=== PATIENT | female | born 1955 | race African-American/Black ===

== ENCOUNTER 2020-02-07 08:50 | Emergency (ER) | payer MEDICARE, MEDICAID ==
[~2020-02-07] VITALS: Ht 154.9 cm; Wt 56.7 kg
[2020-02-07] MEDS ORDERED: ASPirin 81 mg TAB PO ONE (09:15)
[2020-02-07] MEDS ORDERED: NITROGLYCERIN 0.4 MG SL TAB SL ONE (09:15)
[2020-02-07 09:35] LABS: Basophils # (auto) 0 10 ^3/uL (0-0.2); Basophils % (auto) 0.7 % (0.0-2.0); Eosinophils # (auto) 0.1 10 ^3/uL (0-0.8); Eosinophils % (auto) 1.3 % (0.0-7.0); Hematocrit 43.5 % (36.0-46.0); Hemoglobin 14.3 g/dL (12.2-16.2); Lymphocytes # (auto) 1.8 10 ^3/uL (0.4-5.4); Lymphocytes % (auto) 26.3 % (10.0-50.0); Mean Corpuscular Hemoglobin 28.9 pg (28.0-32.0); Mean Corpuscular Hgb Conc. 32.8 g/dL (32.0-36.0); Mean Corpuscular Volume 88.2 fL (80.0-100.0); Monocytes # (auto) 0.4 10 ^3/uL (0-1.3); Monocytes % (auto) 6.2 % (0.0-12.0); Neutrophils # (auto) 4.4 10 ^3/uL (1.6-8.6); Neutrophils % (auto) 65.5 % (37.0-80.0); Platelet Count (auto) 292 10^3/uL (140-450); Red Blood Cells 4.94 10^6/uL (4.0-5.20); Red Cell Distribution Width 14.4 % (11.8-14.3); White Blood Cell 6.7 10^3/uL (4.4-10.8)
[2020-02-07 09:57] LABS: Anion Gap 6 (5-15); Blood Urea Nitrogen 15 mg/dL (7-18); Calcium 9.4 mg/dL (8.5-10.1); Carbon Dioxide 24 mmol/L (21-32); Chloride 109 mmol/L (98-107); Glucose 93 mg/dL (74-106); Sodium 139 mmol/L (136-145)
[2020-02-07 10:02] LABS: Alanine Aminotransferase 22 U/L (13-56); Alkaline Phosphatase 109 U/L (45-117); Aspartate Aminotransferase 15 U/L (15-37); BUN/Creatinine Ratio 20.5; Bilirubin, Total 0.3 mg/dL (0.2-1.0); GFR African American 103 mL/min; GFR Non-African American 85 mL/min; Total Protein 8.2 g/dL (6.4-8.2)
[2020-02-07 11:06] LABS: Urine Bacteria NONE SEEN /hpf (None Seen); Urine Blood TRACE /uL (Negative); Urine Mucus FEW (None Seen); Urine WBC 24 /hpf (0 - 5)
[2020-02-07 11:26] VITALS: BP 161/82
== END 2020-02-07 13:15 | disposition home or self-care (01) ==
LOC: ER 08:50
DX: R07.89 Other chest pain (principal); J40 Bronchitis, not specified as acute or chronic; N39.0 Urinary tract infection, site not specified; F17.210 Nicotine dependence, cigarettes, uncomplicated; I10 Essential (primary) hypertension
CPT/HCPCS: 36415; 71046; 80053; 81001; 84484; 85025; 93005

== ENCOUNTER 2024-10-14 16:29 | Inpatient (IN) | payer OTHER, MEDICAID ==
[~2024-10-14] VITALS: Ht 154.9 cm; Wt 64.3 kg
--- NOTE | 2024-10-14 16:48 | ED.PDOC ---
History of Present Illness HPI Comments 69F presents to the ER w/ prior Hx of HTN, VA and Asthma which all may be associated to the c/c of CP which started at 0900 this morning. Pt reports that she was bending down when the substernal CP w/ a stabbing sensation, also radiating down the left arm and was associated w/ SOB. Pt states that she had similar symptoms 2 weeks ago but went to [facility]. Pt's Pain type is a 9/10. PMHx of CVA. SHx of Tonsillectomy. Social Hx of Tobacco, and recently quite marijuana use but denies alcohol use. Family Hx of Heart Dorys. Chief Complaint: Chest Pain Time Seen by MD: 16:40 Reviewed Notes: Nurses Notes, Medications, Allergies Allergies: Coded Allergies: Aspirin (Verified Allergy, Unknown, 02/07/20) Information Source: Patient Mode of Arrival: Ambulatory Severity: Moderate Timing: Hours Duration: Since onset, Hours Prehospital treatment: None Past Medical History PAST MEDICAL HISTORY: Asthma, CVA, HTN, VA Surgical History: Tonsillectomy INSOLVENCY PRACTITIONER History: No Pertinent INSOLVENCY PRACTITIONER History Family History Family History: Reviewed,noncontributory to illness, Family hx of heart dorys Social History Smoker: Cigarettes Alcohol: Denies ETOH Use Drugs: Marijuana (Recently Quit) Lives In: Home Constitutional: denies: chills, diaphoresis, fatigue, fever, malaise, sweats, weakness, others EENTM: denies: blurred vision, double vision, ear bleeding, ear discharge, ear drainage, ear pain, ear ringing, eye pain, eye redness, hearing loss, mouth pain, mouth swelling, nasal discharge, nose bleeding, nose congestion, nose pain, photophobia, tearing, throat pain, throat swelling, voice changes, others Respiratory: reports: shortness of breath; denies: cough, hemoptysis, orthopnea, SOB at rest, SOB with excertion, stridor, wheezing, others Cardiovascular: reports: chest pain, left arm pain; denies: dizzy spells, diaphoresis, Dyspnea on exertion, edema, irregular heart beat, lightheadedness, palpitations, PND, syncope, others Gastrointestinal: denies: abdomen distended, abdominal pain, blood streaked bowels, constipated, diarrhea, dysphagia, difficulty swallowing, hematemesis, melena, nausea, poor appetite, poor fluid intake, rectal bleeding, rectal pain, vomiting, others Genitourinary: denies: abnormal vagina bleeding, burning, dyspareunia, dysuria, flank pain, frequency, hematuria, incontinence, pain, , vagina discharge, urgency, others Neurological: denies: dizziness, fainting, headache, left sided numbness, left sided weakness, numbness, paresthesia, pre-existing deficit, right sided numbness, right sided weakness, seizure, speech problems, tingling, tremors, weakness, others Musculoskeletal: denies: back pain, gout, joint pain, joint swelling, muscle pain, muscle stiffness, neck pain, others Integumetry: denies: bruises, change in color, change in hair/nails, dryness, laceration, lesions, lumps, rash, wounds, others Allergic/Immunocompromised: denies: Difficulty Healing, Frequent Infections, Hives, Itching, others Hematologic/Lymphatic: denies: anemia, blood clots, easy bleeding, easy bruising, swollen glands, others Endocrine: denies: excessive hunger, excessive sweating, excessive thirst, excessive urination, flushing, intolerance to cold, intolerance to heat, unexplained weight gain, unexplained weight loss, others Psychiatric: denies: anxiety, bipolar disorder, depression, hopeless, panic disorder, schizophrenia, sleepless, suicidal, others All Other Systems: Reviewed and Negative Physical Exam General Appearance: Moderate Distress HEENT: Normal ENT Inspection, Pharynx Normal, TMs Normal Neck: Full Range of Motion, Non-Tender, Normal, Normal Inspection Respiratory: Chest Non-Tender, Lungs Clear, No Accessory Muscle Use, No Respiratory Distress, Normal Breath Sounds Cardiovascular: No Edema, No JVD, No Murmur, No Gallop, Normal Peripheral Pulses, Regular Rate/Rhythm Breast Exam: Deferred Gastrointestinal: No Organomegaly, Non Tender, No Pulsatile Mass, Normal Bowel Sounds, Soft Genitalia: Deferred Pelvic: Deferred Rectal: Deferred Extremities: No calf tenderness, Normal capillary refill, Normal inspection, Normal range of motion, Non-tender, No pedal edema Musculoskeletal : Apperance: Normal Neurologic: Alert, medical reception II-XII nml as Tested, Motor Weakness, Normal Affect, Normal Mood, No Sensory Deficits Cerebellar Function: Normal Reflexes: Normal Skin: Dry, Normal Color, Warm Lymphatic: No Adenopathy Was a procedure done? Was a procedure done?: No EKG EKG : Pulse Rate (adult): 88 [place]: Normal Cardiac Rhythm: NSR Block: None Hypertrophy: None ST: Normal Differential Dx Considerations may include: ACS, VA, generalized weakness X-Ray, Labs, Meds, VS Vital Signs Date Time Temp Pulse Resp B/P (MAP) Pulse Ox O2 Delivery O2 Flow Rate FiO2 10/14/24 17:39 87 10/14/24 16:48 88 10/14/24 16:43 98.0 100 20 144/85 (104) 99 10/14/24 16:42 88 Lab Test 10/14/24 17:48 10/14/24 16:38 Range/Units Troponin I High Sensitivity 4 4 </=34 ng/L White Blood Count 11.8 H 4.4-10.8 10^3/uL Red Blood Count 4.73 4.0-5.20 10^6/uL Hemoglobin 14.0 12.2-16.2 g/dL Hematocrit 40.9 36.0-46.0 % Mean Corpuscular Volume 86.4 80.0-100.0 fL Mean Corpuscular Hemoglobin 29.6 28.0-32.0 pg Mean Corpuscular Hemoglobin Concent 34.3 32.0-36.0 g/dL Red Cell Distribution Width 15.1 H 11.8-14.3 % Platelet Count 294 140-450 10^3/uL Mean Platelet Volume 7.8 6.9-10.8 fL Neutrophils (%) (Auto) 74.4 37.0-80.0 % Lymphocytes (%) (Auto) 18.9 10.0-50.0 % Monocytes (%) (Auto) 5.5 0.0-12.0 % Eosinophils (%) (Auto) 0.8 0.0-7.0 % Basophils (%) (Auto) 0.4 0.0-2.0 % Neutrophils # (Auto) 8.8 H 1.6-8.6 10 ^3/uL Lymphocytes # (Auto) 2.2 0.4-5.4 10 ^3/uL Monocytes # (Auto) 0.6 0-1.3 10 ^3/uL Eosinophils # (Auto) 0.1 0-0.8 10 ^3/uL Basophils # (Auto) 0 0-0.2 10 ^3/uL Nucleated Red Blood Cells 0.0 % Sodium Level 141 136-145 mmol/L Potassium Level 4.0 3.5-5.1 mmol/L Chloride Level 103 98-107 mmol/L Carbon Dioxide Level 27 20-31 mmol/L Anion Gap 11 5-15 Blood Urea Nitrogen 14 9-23 mg/dL Creatinine 0.94 0.550-1.02 mg/dL Glomerular Filtration Rate Calc 65 >90 mL/min BUN/Creatinine Ratio 14.9 10.0-20.0 Serum Glucose 97 74-106 mg/dL Calcium Level 10.5 H 8.7-10.4 mg/dL IV Hep-Lock was established The patient was allergic to aspirin. The troponin level x2 is within normal limits The chemistry panel is within normal limits The CBC is within normal limits. At this time, the patient was being admitted to the hospitalist The chest x-ray shows: IMPRESSION: 1. Increased density in the lung bases bilaterally may represent breast tissue or pulmonary infiltrates. HS:Y The patient was being admitted at this time. Images Reviewed?: Images reviewed and evaluated by me Time of 1ST Reevaluation: 17:10 Reevaluation 1ST: Unchanged Patient Education/Counseling: Diagnosis, Treatment, Prognosis Family Education/Counseling: No Family Present Departure 1 Departure Time of Disposition: 19:10 Impression: Primary Impression: Acute coronary syndrome Disposition: 09 ADMITTED INPATIENT Admit to: [facility] Condition: Fair Critical Care Note Critical Care Time?: Yes (55 min-critical care time only) Stability Stability form required: Yes Unstable for transfer: Telemetry monitoring (Telemetry monitoring required), ED Physician Assesment (Clinical assesment) Heart Score Heart Score: Heart Score Response (Comments) Value History Moderate Suspicious 1 EKG Repolarization Disturb 1 Age >65 2 Risk Factors 1 or 2 risk factors 1 Troponin Normal limit 0 Total 5 I personally scribed for DANIEL RANDOLPH MD ([email or web address]) on 10/14/24 at 16:48. Electronically submitted by Yayo Chaudhary ([email or web address]). DANIEL RANDOLPH MD Oct 14, 2024 16:48
--- NOTE | 2024-10-14 17:14 | DVH ---
CHEST RADIOGRAPH Indication: cp Technique: Single frontal view of the chest was obtained Comparison: None FINDINGS: Lines and Tubes: None Lungs: Increased density in the lung bases bilaterally may represent breast tissue Pleura: No effusion. No pneumothorax. Cardiomediastinal contours: Unremarkable Bones: No acute osseous abnormality. IMPRESSION: 1. Increased density in the lung bases bilaterally may represent breast tissue or pulmonary infiltrat es. HS:Y
[2024-10-14 17:15] LABS: Basophils # (auto) 0 10 ^3/uL (0-0.2); Basophils % (auto) 0.4 % (0.0-2.0); Eosinophils # (auto) 0.1 10 ^3/uL (0-0.8); Eosinophils % (auto) 0.8 % (0.0-7.0); Hematocrit 40.9 % (36.0-46.0); Lymphocytes # (auto) 2.2 10 ^3/uL (0.4-5.4); Lymphocytes % (auto) 18.9 % (10.0-50.0); Mean Corpuscular Hemoglobin 29.6 pg (28.0-32.0); Mean Corpuscular Hgb Conc. 34.3 g/dL (32.0-36.0); Mean Corpuscular Volume 86.4 fL (80.0-100.0); Monocytes # (auto) 0.6 10 ^3/uL (0-1.3); Monocytes % (auto) 5.5 % (0.0-12.0); Neutrophils # (auto) 8.8 10 ^3/uL (1.6-8.6); Neutrophils % (auto) 74.4 % (37.0-80.0); Platelet Count (auto) 294 10^3/uL (140-450); Red Blood Cells 4.73 10^6/uL (4.0-5.20); Red Cell Distribution Width 15.1 % (11.8-14.3); White Blood Cell 11.8 10^3/uL (4.4-10.8)
[2024-10-14 17:23] LABS: Chloride 103 mmol/L (98-107); Sodium 141 mmol/L (136-145)
[2024-10-14 17:25] LABS: Anion Gap 11 (5-15); Carbon Dioxide 27 mmol/L (20-31)
[2024-10-14 17:30] LABS: BUN/Creatinine Ratio 14.9 (10.0-20.0); Blood Urea Nitrogen 14 mg/dL (9-23); Glucose 97 mg/dL (74-106)
[2024-10-14 18:10] LABS: Calcium 10.5 mg/dL (8.7-10.4)
--- NOTE | 2024-10-14 19:59 | ECG ---
[facility] Test Date: 2024-10-14 Test Time: 17:39:32 Pat Name: JASON GRANT Department: ED Room: [facility] Gender: F Vp Publisher Development: KIMANI : 1955 Requested By: DANIEL RANDOLPH Order Number: [id number] Reading MD: Alex Garcias Measurements Intervals [place] Rate: 87 P: 84 AR: 134 QRS: 77 QRSD: 83 T: 3 QT: 369 QTc: 444 Interpretive Statements Sinus rhythm Baseline wander in lead(s) V4,V5 Electronically Signed On 10-16-2024 18:44:36 PST by Alex Garcias Please click the below link to view image of tracing.
[2024-10-14] MEDS ORDERED: ONDANSETRON HCL 4 MG/2 ML VIAL IV PRN (20:30)
[2024-10-14] MEDS ORDERED: DOCUSATE SOD 100 MG CAP PO PRN (20:30)
[2024-10-14] MEDS ORDERED: hydrALAZINE HCL 20 MG/ML VL IV PRN (20:30)
[2024-10-14] MEDS ORDERED: ACETAMINOPHEN 325 MG TAB PO PRN (20:30)
[2024-10-14 20:44] VITALS: BP 144/88; PULSE 87; RESP 20; O2SAT 92
[2024-10-14] MEDS: AZITHROMYCIN 500MG/ 250ML 250 ML IV ONE (22:08)
--- NOTE | 2024-10-14 22:12 | DVHHP2 ---
History of Present Illness Reason for Visit: Acute coronary syndrome History of Present Illness The patient is a 69-year-old female with past medical history of CVA, [place], hypertension, and asthma presented to [facility] ED with complaint chest pain. Patient reports symptoms progressively get worse with substernal c hest pain, stopping sensation radiates to the left arm, associated shortness of breaths, getting worse that prompted this visit. Patient was seen evaluated in the ED, laboratory data shows WBC 11.8, platelets 294, sodium 141, potassium 4.0, BUN 14, creatinine 0.94, GFR 65, glucose 97, calcium 10.5, troponin 4 blood pressure 144/85, heart rate 88, temperature 98.0 F, O2 saturation 9% on oxygen. Chest x-ray revealing increased density in the lung bases bilaterally may represent breast tissue or pulmonary infiltrates. Patient was started on IV antibiotic regimen azithromycin, please see medication orders section in the computer. On my assessment, patient denied chest pain at this moment, headache, no dizziness, no diaphoresis, currently on oxygen, no nausea, no vomiting, no fever, no chills. Patient was admitted for further evaluation and medical management. Past Medical History Asthma, CVA, HTN, [place] Past Surgical History Tonsillectomy Family History Reviewed, noncontributory to the management of this case. Past Social History The patient lives at home, denies alcohol, smokes cigarettes, uses marijuana. Review of Systems Constitutional: Yes: Weakness; No: Fever, Chills, Sweats, Malaise, Other Eyes: No: Pain, Vision change, Conjunctivae inflammation, Eyelid inflammation, Other, Redness ENT: No: Ear pain, Ear discharge, Nose pain, Nose discharge, Nose congestion, Mouth pain, Mouth swelling, Throat pain, Throat swelling, Other Respiratory: No: Cough, Dry, Shortness of breath, SOB with excertion, Wheezing, Hemoptysis, Pleuritic Pain, Sputum, Wheezing, Other Cardiovascular: Chest Pain, Other (Left arm pain); No: Palpitations, Orthopnea, Paroxysmal Noc. Dyspnea, Edema, Lt Headedness Gastrointestinal: No: Nausea, Vomiting, Abdominal Pain, Diarrhea, Constipation, Melena, Hematochezia, Other Genitourinary: No Dysuria, No Frequency, No Incontinence, No Hematuria, No Retention, No Other Musculoskeletal: arm pain; No: other, neck pain, shoulder pain, back pain, hand pain, leg pain, foot pain Skin: No: Rash, Lesions, Jaundice, Bruising, Other Neurological: No: Weakness, Numbness, Incoordination, Change in speech, Confusion, Seizures, Other Allergies: Coded Allergies: Aspirin (Verified Allergy, Unknown, 02/07/20) Medications Current Medications Medications Dose Ordered Sig/Angely Route Start Time Stop Time Status Last Admin Dose Admin Aspirin 81 mg DAILY PO 10/15/24 10:00 Future Hold Atorvastatin Calcium 10 mg HS PO 10/14/24 22:00 Hydralazine HCl 10 mg Q6HP PRN IV 10/14/24 20:30 Metoprolol Tartrate 25 mg BID PO 10/14/24 22:00 Albuterol 2.5 mg Q4HPRN PRN NEB 10/14/24 20:30 Azithromycin 250 ml @ 125 mls/hr DAILY IV 10/15/24 10:00 Acetaminophen/ Hydrocodone Bitart 1 tab Q4HP PRN PO 10/14/24 20:30 Ondansetron HCl 4 mg Q4HP PRN IV 10/14/24 20:30 Docusate Sodium 100 mg BIDPRN PRN PO 10/14/24 20:30 Acetaminophen 650 mg Q6HP PRN PO 10/14/24 20:30 Nitroglycerin 0.4 mg Q5MINP PRN SL 10/14/24 22:15 Morphine Sulfate 2 mg Q30M PRN IV 10/14/24 22:15 Exam Vital Signs Vital Signs Date Time Temp Pulse Resp B/P (MAP) Pulse Ox O2 Delivery O2 Flow Rate FiO2 10/14/24 21:57 74 20 100 Room Air 10/14/24 21:57 97.8 152/87 (108) 97.8 10/14/24 20:44 0.0 21 General Appearance: Alert, Oriented X3, Cooperative, No acute distress HEENT: Atraumatic, PERRLA, EOMI, Mucous membr. moist/pink Respiratory: Normal air movement, Other (Diminished breath sounds) Cardiovascular: Regular rate, Normal S1, Normal S2, No murmurs Abdominal: Normal bowel sounds, Soft, No tenderness, No hepatospenomegaly, No masses Extremities: No clubbing, No cyanosis, No edema, Normal pulses, No tenderness/swelling Skin: No rashes, No breakdown, No significant lesion Neuro: Normal speech, Normal tone, Sensation intact, Cranial nerves 3-12 NL, Re flexes 2+, Other (Generalized weakness) Psych/Mental Status: Mental status NL, Mood NL Labs/Xrays Labs Test 10/14/24 17:48 10/14/24 16:38 Range/Units Troponin I High Sensitivity 4 </=34 ng/L White Blood Count 11.8 H 4.4-10.8 10^3/uL Red Blood Count 4.73 4.0-5.20 10^6/uL Hemoglobin 14.0 12.2-16.2 g/dL Hematocrit 40.9 36.0-46.0 % Mean Corpuscular Volume 86.4 80.0-100.0 fL Mean Corpuscular Hemoglobin 29.6 28.0-32.0 pg Mean Corpuscular Hemoglobin Concent 34.3 32.0-36.0 g/dL Red Cell Distribution Width 15.1 H 11.8-14.3 % Platelet Count 294 140-450 10^3/uL Mean Platelet Volume 7.8 6.9-10.8 fL Neutrophils (%) (Auto) 74.4 37.0-80.0 % Lymphocytes (%) (Auto) 18.9 10.0-50.0 % Monocytes (%) (Auto) 5.5 0.0-12.0 % Eosinophils (%) (Auto) 0.8 0.0-7.0 % Basophils (%) (Auto) 0.4 0.0-2.0 % Neutrophils # (Auto) 8.8 H 1.6-8.6 10 ^3/uL Lymphocytes # (Auto) 2.2 0.4-5.4 10 ^3/uL Monocytes # (Auto) 0.6 0-1.3 10 ^3/uL Eosinophils # (Auto) 0.1 0-0.8 10 ^3/uL Basophils # (Auto) 0 0-0.2 10 ^3/uL Nucleated Red Blood Cells 0.0 % Sodium Level 141 136-145 mmol/L Potassium Level 4.0 3.5-5.1 mmol/L Chloride Level 103 98-107 mmol/L Carbon Dioxide Level 27 20-31 mmol/L Anion Gap 11 5-15 Blood Urea Nitrogen 14 9-23 mg/dL Creatinine 0.94 0.550-1.02 mg/dL Glomerular Filtration Rate Calc 65 >90 mL/min BUN/Creatinine Ratio 14.9 10.0-20.0 Serum Glucose 97 74-106 mg/dL Calcium Level 10.5 H 8.7-10.4 mg/dL PATIENT: JASON GRANT ACCT: [id number] UNIT: [id number] : 1955 LOC: ER ROOM / BED: / AGE / SEX: 69 / F ADM STATUS: REG ER SERVICE ORDERING PHYSICIAN: DANIEL RANDOLPH MD PROCEDURE(s): CXRP - CHEST PORTABLE REASON: cp ORDER NUMBER(s): [id number], ACCESSION NUMBER(s): [id number] CHEST RADIOGRAPH Indication: cp Technique: Single frontal view of the chest was obtained Comparison: None FINDINGS: Lines and Tubes: None Lungs: Increased density in the lung bases bilaterally may represent breast tissue Pleura: No effusion. No pneumothorax. Cardiomediastinal contours: Unremarkable Bones: No acute osseous abnormality. IMPRESSION: 1. Increased density in the lung bases bilaterally may represent breast tissue or pulmonary infiltrates. Assessment/Plan Assessment/Plan Acute coronary syndrome Generalized weakness Leukocytosis, unspecified Pneumonia, unspecified organism Plan 1. Admit to telemetry unit 2. Breathing treatment 3. Pain control management 4. IV antibiotic management 5. Management of fluids and electrolytes 6. Consultation for hospitalist 7. Diagnostic test chest x-ray 8. DVT prophylaxis-on aspirin 9. Repeat labs CBC, CMP in a.m. 10. Home medication reviewed and reconciled 11. Continue with current medical management 12. Treatment plan discussed with patient and RN. Patient verbalized understanding. Plan discussed with: Patient, Other (RN) My Orders Orders - FRANCESCO CATES DNP Procedure Category Date Status Time Aspirin Tablet PHA 10/15/24 In Process 10:00 Atorvastatin (Lipitor) PHA 10/14/24 In Process 22:00 Hydralazine Injection PHA 10/14/24 In Process (Apresoline Inject 20:30 Metoprolol Tartrate PHA 10/14/24 In Process Tablet (Lopressor Ta 22:00 Albuterol Medneb PHA 10/14/24 In Process (Ventolin Medneb) 20:30 Azithromycin 500mg/ PHA 10/15/24 In Process 250ml (Zithromax 50 10:00 Azithromycin 500mg/ PHA 10/14/24 In Process 250ml (Zithromax 50 20:30 Allergies JEAN 10/14/24 In Process 20:30 Code Status CODE 10/14/24 Transmitted 20:30 Oxygen Per Hour RT 10/14/24 Transmitted 20:30 Hydrocodone-Acet PHA 10/14/24 In Process 5/325mg Tab ([place] 20:30 Ondansetron Hcl PHA 10/14/24 In Process (Zofran) 20:30 Docusate Sodium PHA 10/14/24 In Process Capsule (Colace 20:30 Complete Blood Count LAB 10/15/24 Verified 04:00 Comprehensive LAB 10/15/24 Verified Metabolic Panel 04:00 Cardiac DIET 10/15/24 Transmitted Diet-2gna,Lofat,Lochol Breakfast Condition: Serious JEAN 10/14/24 In Process 20:30 Acetaminophen Tablet PHA 10/14/24 In Process (Tylenol Tablet) 20:30 Bedrest With Bathroom JEAN 10/14/24 In Process Privileg 20:30 Sequential JEAN 10/14/24 In Process Compression Device Admit ADMIT 10/14/24 Transmitted 22:03 Nitroglycerin PHA 10/14/24 In Process Sublingual (Ntrostat 22:15 Morphine Sulfate PHA 10/14/24 In Process Injection 22:15 Notify Of Changes JEAN 10/14/24 In Process From Base 22:03 Safety And Security Officer For [facility] 10/14/24 In Process 24 Hours 22:03 Emergency Dysrhythmia JEAN 10/14/24 In Process Protocol 22:03 Rhythm Strips Once JEAN 10/14/24 In Process Every Shift 22:03 Oxygen By Nasal RT 10/14/24 Transmitted Cannula 22:03 Problem List: (1) Acute coronary syndrome (2) Leukocytosis, unspecified (3) Generalized weakness (4) Pneumonia, unspecified organism Date of Service: Oct 14, 2024 Billing Provider: FRANCESCO CATES DNP Common Visit Codes: [id number] INP/OBS CARE (HIGH) FRANCESCO CATES DNP Oct 14, 2024 22:12
[2024-10-14] MEDS: ATORVASTATIN 20 MG TAB PO SCH (22:14)
[2024-10-14] MEDS: METOPROLOL TARTRATE 25 MG TAB PO SCH (22:14)
[2024-10-14] MEDS: HYDROcodone-ACET 5/325MG TAB PO PRN (22:14)
[2024-10-14] MEDS ORDERED: MORPHINE SULFATE INJ 2 MG/ml SYRG IV PRN (22:15)
[2024-10-14] MEDS ORDERED: NITROGLYCERIN 0.4 MG SL TAB SL PRN (22:15)
[2024-10-15] VITALS (13 sets, daily range): BP systolic 119–154; BP diastolic 69–87; PULSE 58–77; RESP 16–20; TEMP 97.6–98.1; O2SAT 98–100
[2024-10-15 07:15] LABS: Basophils # (auto) 0 10 ^3/uL (0-0.2); Basophils % (auto) 0.4 % (0.0-2.0); Eosinophils # (auto) 0.1 10 ^3/uL (0-0.8); Eosinophils % (auto) 1.2 % (0.0-7.0); Hematocrit 42.5 % (36.0-46.0); Lymphocytes # (auto) 1.8 10 ^3/uL (0.4-5.4); Lymphocytes % (auto) 21.7 % (10.0-50.0); Mean Corpuscular Hemoglobin 28.9 pg (28.0-32.0); Mean Corpuscular Hgb Conc. 32.9 g/dL (32.0-36.0); Monocytes # (auto) 0.7 10 ^3/uL (0-1.3); Monocytes % (auto) 8.9 % (0.0-12.0); Neutrophils # (auto) 5.6 10 ^3/uL (1.6-8.6); Neutrophils % (auto) 67.8 % (37.0-80.0); Nucleated Red Blood Cells % 0.1 %; Platelet Count (auto) 265 10^3/uL (140-450); Red Blood Cells 4.83 10^6/uL (4.0-5.20); Red Cell Distribution Width 15.2 % (11.8-14.3); White Blood Cell 8.3 10^3/uL (4.4-10.8)
[2024-10-15 07:42] LABS: Alanine Aminotransferase 10 U/L (7-40); Albumin 4.8 g/dL (3.2-4.8); Alkaline Phosphatase 83 U/L (46-116); Anion Gap 9 (5-15); Aspartate Aminotransferase 14 U/L (13-40); BUN/Creatinine Ratio 13.9 (10.0-20.0); Bilirubin, Total 0.6 mg/dL (0.2-1.0); Blood Urea Nitrogen 11 mg/dL (9-23); Calcium 10.3 mg/dL (8.7-10.4); Carbon Dioxide 23 mmol/L (20-31); Chloride 105 mmol/L (98-107); Potassium 4.1 mmol/L (3.5-5.1); Sodium 137 mmol/L (136-145); Total Protein 7.9 g/dL (5.7-8.2)
[2024-10-15 07:44] LABS: Glucose 108 mg/dL (74-106)
[2024-10-15] MEDS ORDERED: ASPirin 81 mg TAB PO SCH (10:00)
[2024-10-15] MEDS: AZITHROMYCIN 500MG/ 250ML 250 ML IV SCH (10:13)
--- NOTE | 2024-10-15 12:06 | DVHPN2 ---
Subjective 69-year-old female with a history of asthma, hypertension, CVA x2, [place] in the past comes with chief complaint of chest pain for 1 week associated with some cough The pain is in the center of the chest associated with movement and deep breathing The cough is productive of some dark yellow sputum Changes from previous H/P or p: Changes Eyes: No Pain, No Vision change, No Conjunctivae inflammation, No Eyelid inflammation, No Other, No Redness ENT: No Ear pain, No Ear discharge, No Nose pain, No Nose discharge, No Nose congestion, No Mouth pain, No Mouth swelling, No Throat pain, No Throat swelling, No Other Cardiovascular: Chest Pain; No Palpitations, No Orthopnea, No Paroxysmal Noc. Dyspnea, No Edema, No Lt Headedness; Other (Left arm pain) Respiratory: No Cough, No Dry, No Shortness of breath, No SOB with excertion, No Wheezing, No Hemoptysis, No Pleuritic Pain, No Sputum, No Other Gastrointestinal: No Nausea, No Vomiting, No Abdominal Pain, No Diarrhea, No Constipation, No Melena, No Hematochezia, No Other Genitourinary: No Dysuria, No Frequency, No Incontinence, No Hematuria, No Retention, No Other Musculoskeletal: No other, No neck pain, No shoulder pain; arm pain; No back pain, No hand pain, No leg pain, No foot pain Skin: No Rash, No Lesions, No Jaundice, No Bruising, No Other Objective Vitals Vital Signs Date Time Temp Pulse Resp B/P (MAP) Pulse Ox O2 Delivery O2 Flow Rate FiO2 10/15/24 10:16 68 135/80 10/15/24 09:16 98.1 17 99 98.1 10/15/24 00:31 Room Air* 0 21 Intake/Output Intake and Output 10/15/24 07:00 Intake Total 240 ml Output Total 200 ml Balance 40 ml Intake Oral 240 ml Output Urine Total 200 ml General Appearance: Alert, Oriented X3, Cooperative, No acute distress Lungs: Clear to auscultation Cardiovascular: Regular rate Abdomen: Normal bowel sounds, Soft, No tenderness Extremities: No edema Medications Current Medications Medications Dose Ordered Sig/Agnely Route Start Time Stop Time Status Last Admin Dose Admin Aspirin 81 mg DAILY PO 10/15/24 10:00 Hold Atorvastatin Calcium 10 mg HS PO 10/14/24 22:00 10/14/24 22:14 10 MG Hydralazine HCl 10 mg Q6HP PRN IV 10/14/24 20:30 Metoprolol Tartrate 25 mg BID PO 10/14/24 22:00 10/15/24 10:16 25 MG Albuterol 2.5 mg Q4HPRN PRN NEB 10/14/24 20:30 Azithromycin 250 ml @ 125 mls/hr DAILY IV 10/15/24 10:00 10/15/24 10:13 125 MLS/HR Acetaminophen/ Hydrocodone Bitart 1 tab Q4HP PRN PO 10/14/24 20:30 10/15/24 11:07 1 TAB Ondansetron HCl 4 mg Q4HP PRN IV 10/14/24 20:30 Docusate Sodium 100 mg BIDPRN PRN PO 10/14/24 20:30 Acetaminophen 650 mg Q6HP PRN PO 10/14/24 20:30 Nitroglycerin 0.4 mg Q5MINP PRN SL 10/14/24 22:15 Morphine Sulfate 2 mg Q30M PRN IV 10/14/24 22:15 Laboratory Results Laboratory Tests 10/15/24 06:22 Chemistry Test 10/14/24 16:38 10/15/24 06:22 Calcium Level 10.5 mg/dL (8.7-10.4) H 10.3 mg/dL (8.7-10.4) Albumin 4.8 g/dL (3.2-4.8) Total Protein 7.9 g/dL (5.7-8.2) LFT Test 10/15/24 06:22 Alanine Aminotransferase (ALT) 10 U/L (7-40) Alkaline Phosphatase 83 U/L (46-116) Aspartate Amino Transferase (AST) 14 U/L (13-40) Total Bilirubin 0.6 mg/dL (0.2-1.0) Assessment/Plan Assessment/Plan Acute chest pain, musculoskeletal Bilateral pneumonia Asthma COPD exacerbation Hypertension History of CVA History of asthma History of [place] Hypothyroidism Plan IV antibiotics Rocephin and Zithromax Discontinue aspirin, patient is allergic Troponins are negative Resume home medications Start prednisone 40 mg daily Med neb treatments as needed Tylenol p.r.n. for the pain Get sputum culture and sensitivity Check for COVID and influenza a and B Monitor closely Full code Resume levothyroxine Get the home medications Plan discussed with: Patient Date of Service: Oct 15, 2024 Billing Provider: BROOKLYNN TAYLOR MD Common Visit Codes: NOT BILLABLE BROOKLYNN TAYLOR MD Oct 15, 2024 12:06
[2024-10-15] MEDS: ALBUTEROL SULF 2.5 MG/0.5ML(0.5%) NEB SOLN NEB PRN (14:23)
[2024-10-15] MEDS: predniSONE 20 MG TAB PO ONE (15:45)
[2024-10-15] MEDS: cefTRIAXone 1GM/50ML D5W 50 ML IV ONE (15:46)
[2024-10-15] MEDS: LEVOTHYROXINE SODIUM 25 MCG TAB PO ONE (15:46)
[2024-10-16] VITALS (10 sets, daily range): BP systolic 139–157; BP diastolic 65–89; PULSE 60–74; RESP 18–19; TEMP 97.6–98.5; O2SAT 96–100
[2024-10-16] MEDS: LEVOTHYROXINE SODIUM 25 MCG TAB PO SCH (05:58)
[2024-10-16] MEDS: cefTRIAXone 1GM/50ML D5W 50 ML IV SCH (10:51)
[2024-10-16] MEDS: predniSONE 20 MG TAB PO SCH (10:52)
--- NOTE | 2024-10-16 12:41 | DVHPN2 ---
Subjective Still having cough productive of some sputum She is still having chest pain also associated with a cough Changes from previous H/P or p: Changes Eyes: No Pain, No Vision change, No Conjunctivae inflammation, No Eyelid inflammation, No Other, No Redness ENT: No Ear pain, No Ear discharge, No Nose pain, No Nose discharge, No Nose congestion, No Mouth pain, No Mouth swelling, No Throat pain, No Throat swelling, No Other Cardiovascular: Chest Pain; No Palpitations, No Orthopnea, No Paroxysmal Noc. Dyspnea, No Edema, No Lt Headedness; Other (Left arm pain) Respiratory: No Cough, No Dry, No Shortness of breath, No SOB with excertion, No Wheezing, No Hemoptysis, No Pleuritic Pain, No Sputum, No Other Gastrointestinal: No Nausea, No Vomiting, No Abdominal Pain, No Diarrhea, No Constipation, No Melena, No Hematochezia, No Other Genitourinary: No Dysuria, No Frequency, No Incontinence, No Hematuria, No Retention, No Other Musculoskeletal: No other, No neck pain, No shoulder pain; arm pain; No back pain, No hand pain, No leg pain, No foot pain Skin: No Rash, No Lesions, No Jaundice, No Bruising, No Other Objective Vitals Vital Signs Date Time Temp Pulse Resp B/P (MAP) Pulse Ox O2 Delivery O2 Flow Rate FiO2 10/16/24 10:54 68 150/81 10/16/24 09:16 98.1 18 100 98.1 10/16/24 08:00 Room Air* 0 21 Intake/Output Intake and Output 10/16/24 07:00 Intake Total 1400 ml Output Total 900 ml Balance 500 ml Intake Oral 1400 ml Output Urine Total 900 ml General Appearance: Alert, Oriented X3, Cooperative, No acute distress Lungs: Clear to auscultation Cardiovascular: Regular rate Abdomen: Normal bowel sounds, Soft, No tenderness Extremities: No edema Medications Current Medications Medications Dose Ordered Sig/Angely Route Start Time Stop Time Status Last Admin Dose Admin Atorvastatin Calcium 10 mg HS PO 10/14/24 22:00 10/15/24 22:44 10 MG Hydralazine HCl 10 mg Q6HP PRN IV 10/14/24 20:30 Metoprolol Tartrate 25 mg BID PO 10/14/24 22:00 10/16/24 10:54 25 MG Albuterol 2.5 mg Q4HPRN PRN NEB 10/14/24 20:30 10/15/24 14:23 2.5 MG Azithromycin 250 ml @ 125 mls/hr DAILY IV 10/15/24 10:00 10/16/24 10:00 125 MLS/HR Acetaminophen/ Hydrocodone Bitart 1 tab Q4HP PRN PO 10/14/24 20:30 10/16/24 10:53 1 TAB Ondansetron HCl 4 mg Q4HP PRN IV 10/14/24 20:30 Docusate Sodium 100 mg BIDPRN PRN PO 10/14/24 20:30 Acetaminophen 650 mg Q6HP PRN PO 10/14/24 20:30 Nitroglycerin 0.4 mg Q5MINP PRN SL 10/14/24 22:15 Morphine Sulfate 2 mg Q30M PRN IV 10/14/24 22:15 Ceftriaxone Sodium 50 ml @ 100 mls/hr DAILY@09 IV 10/16/24 09:00 10/16/24 10:51 100 MLS/HR Prednisone 40 mg DAILY PO 10/16/24 10:00 10/16/24 10:52 40 MG Levothyroxine Sodium 75 mcg QAM@0600 PO 10/16/24 06:00 10/16/24 05:58 75 MCG Laboratory Results Laboratory Tests 10/15/24 06:22 Assessment/Plan Assessment/Plan Acute chest pain, musculoskeletal Bilateral pneumonia Asthma COPD exacerbation Hypertension History of CVA History of asthma History of SD Hypothyroidism Plan IV antibiotics Rocephin and Zithromax Discontinue aspirin, patient is allergic Troponins are negative Resume home medications Start prednisone 40 mg daily Med neb treatments as needed Tylenol p.r.n. 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
[2024-10-16 18:30] LABS: COVID19 ANTIGEN SOFIA FIA NEGATIVE (NEGATIVE); Rapid Influenza A Negative (Negative); Rapid Influenza B Negative (Negative)
[2024-10-16] MEDS: guaiFENesin-DM 100/10mg/5ml SYR PO PRN (22:02)
[2024-10-17] VITALS (13 sets, daily range): BP systolic 110–185; BP diastolic 59–106; PULSE 61–77; RESP 16–20; TEMP 97.6–98.4; O2SAT 94–100
[2024-10-17] MEDS: ALBUTEROL SULF 2.5 MG/0.5ML(0.5%) NEB SOLN NEB PRN (08:50)
[2024-10-17 10:40] LABS: Hepatitis B Surface Antigen Negative (Negative); Hepatitis C Antibody Negative (Negative)
--- NOTE | 2024-10-17 10:44 | ECG ---
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
--- NOTE | 2024-10-17 11:39 | DVHPN2 ---
Subjective Still having cough productive of dark brown sputum Changes from previous H/P or p: Changes Eyes: No Pain, No Vision change, No Conjunctivae inflammation, No Eyelid inflammation, No Other, No Redness ENT: No Ear pain, No Ear discharge, No Nose pain, No Nose discharge, No Nose congestion, No Mouth pain, No Mouth swelling, No Throat pain, No Throat swelling, No Other Cardiovascular: Chest Pain; No Palpitations, No Orthopnea, No Paroxysmal Noc. Dyspnea, No Edema, No Lt Headedness; Other (Left arm pain) Respiratory: No Cough, No Dry, No Shortness of breath, No SOB with excertion, No Wheezing, No Hemoptysis, No Pleuritic Pain, No Sputum, No Other Gastrointestinal: No Nausea, No Vomiting, No Abdominal Pain, No Diarrhea, No Constipation, No Melena, No Hematochezia, No Other Genitourinary: No Dysuria, No Frequency, No Incontinence, No Hematuria, No Retention, No Other Musculoskeletal: No other, No neck pain, No shoulder pain; arm pain; No back pain, No hand pain, No leg pain, No foot pain Skin: No Rash, No Lesions, No Jaundice, No Bruising, No Other Objective Vitals Vital Signs Date Time Temp Pulse Resp B/P (MAP) Pulse Ox O2 Delivery O2 Flow Rate FiO2 10/17/24 09:58 77 144/106 10/17/24 09:30 94 Room Air* 0 21 10/17/24 09:00 98.2 18 98.2 Intake/Output Intake and Output 10/17/24 07:00 Intake Total 2100 ml Output Total 1350 ml Balance 750 ml Intake Oral 1800 ml IV Total 300 ml Output Urine Total 1350 ml # Voids 2 General Appearance: Alert, Oriented X3, Cooperative, No acute distress Lungs: Clear to auscultation Cardiovascular: Regular rate Abdomen: Normal bowel sounds, Soft, No tenderness Extremities: No edema Medications Current Medications Medications Dose Ordered Sig/Angely Route Start Time Stop Time Status Last Admin Dose Admin Atorvastatin Calcium 10 mg HS PO 10/14/24 22:00 10/16/24 22:01 10 MG Hydralazine HCl 10 mg Q6HP PRN IV 10/14/24 20:30 Metoprolol Tartrate 25 mg BID PO 10/14/24 22:00 10/17/24 09:58 25 MG Azithromycin 250 ml @ 125 mls/hr DAILY IV 10/15/24 10:00 10/17/24 09:58 125 MLS/HR Acetaminophen/ Hydrocodone Bitart 1 tab Q4HP PRN PO 10/14/24 20:30 10/17/24 08:50 1 TAB Ondansetron HCl 4 mg Q4HP PRN IV 10/14/24 20:30 Docusate Sodium 100 mg BIDPRN PRN PO 10/14/24 20:30 Acetaminophen 650 mg Q6HP PRN PO 10/14/24 20:30 Nitroglycerin 0.4 mg Q5MINP PRN SL 10/14/24 22:15 Morphine Sulfate 2 mg Q30M PRN IV 10/14/24 22:15 Ceftriaxone Sodium 50 ml @ 100 mls/hr DAILY@09 IV 10/16/24 09:00 10/17/24 08:50 100 MLS/HR Prednisone 40 mg DAILY PO 10/16/24 10:00 10/17/24 09:58 40 MG Levothyroxine Sodium 75 mcg QAM@0600 PO 10/16/24 06:00 10/17/24 05:21 75 MCG Guaifenesin/ Dextromethorphan 10 ml Q6HP PRN PO 10/16/24 21:15 10/17/24 04:51 10 ML Albuterol 2.5 mg Q4HPRN PRN NEB 10/17/24 06:00 10/17/24 08:50 2.5 MG Laboratory Results Laboratory Tests 10/15/24 06:22 Assessment/Plan Assessment/Plan Acute chest pain, musculoskeletal Bilateral pneumonia Asthma COPD exacerbation Hypertension History of CVA History of asthma History of NM Hypothyroidism Plan IV antibiotics Rocephin and Zithromax Discontinue aspirin, patient is allergic Troponins are negative Resume home medications Start prednisone 40 mg daily Med neb treatments as needed Tylenol p.r.n. 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 Hypothyroidism: TSH is 22.44, the patient was not taking her thyroid medication at home, restarted her dose here 10/17/2024: Continue the current management with IV antibiotics and oxygen med neb treatments COVID and influenza was negative Check the sputum culture and sensitivity Continue the other medications Monitor the patient in the hospital for 1 more day Cardiology consult Echocardiogram Plan discussed with: Patient My Orders Orders - BROOKLYNN TAYLOR MD Procedure Category Date Status Time * Process Development Chemist CONS 10/16/24 Transmitted Consult Date of Service: Oct 17, 2024 Billing Provider: BROOKLYNN TAYLOR MD Common Visit Codes: NOT BILLABLE BROOKLYNN TAYLOR MD Oct 17, 2024 11:39
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
--- NOTE | 2024-10-17 15:01 | DVHSR ---
APPROVED REPORT EXAM: Two-dimensional and M-mode echocardiogram with Doppler and color Doppler. Blood Pressure: 144/106 mmHg INDICATION Chest Pain RISK FACTORS Height: 5'1", Weight: 136 DIMENSIONS LVDd4.0 (3.8-5.7cm)LA (2D)3.9 (1.9-4.0cm)Aortic Root2.5 (2.0-3.7cm) LVDs2.2 (2.5-4.0cm)LA (MM) (1.9-4.0cm)Aortic Cusp Exc1.8 (1.5-2.0cm) EF (%) 78.0 (55-70%)Rt. Atrium3.5 (1.9-4.0cm)Asc. Aorta2.6 cm IVSd1.1 (0.7-1.1cm)RV (D)2.8 (1.8-2.4cm) PWd0.7 (0.7-1.1cm) Mitral Valve MitralMitral Stenosis E wave0.87m/sMV Mean GR.mmHg A wave0.99m/sMV Peak GR.mmHg E/A ratio0.92D MVAcm2 DECEL [id number] 1/2 Timems Aortic Valve Aortic ValveAortic Stenosis V10.93m/Anneliese Mean GR.3mmHg V21.27m/Anneliese Peak GR.6mmHg LVOT Diameter1.9 (1.8-2.4cm)Doppler AVA2.08cm2 Pulmonic Valve V20.73m/s Conclusion lvef 55% by visual estimate moderate left atrium enlarged normal rv function normal right atrium
[2024-10-17 19:34] LABS: Magnesium 1.8 mg/dL (1.6-2.6)
[2024-10-18] VITALS (8 sets, daily range): BP systolic 126–158; BP diastolic 58–75; PULSE 50–85; RESP 16–20; TEMP 98.1–98.8; O2SAT 96–100
[2024-10-18] MEDS: REGADENOSON 0.4 MG/5 ML SYRG IV ONE ×2 (08:39→08:41)
--- NOTE | 2024-10-18 11:55 | DVHSR ---
APPROVED REPORT Exam: Nuclear Stress Test BMI: 0 Stress Test Details HR Max Heart Rate (APMHR): 149.633960 bpm Target HR (85% APMHR): 126.243419 bpm BP ECG Stress ECG Conclusion normal perfusin scan lvef 47% mild dysfunciton, correlate to echo no ischemia NM EXAM: Myocardial Perfusion REST/STRESS Imaging Protocol: Rest Tc-99m/Stress Tc-99m 1 day Resting Data Rest SPECT myocardial perfusion imaging was performed in supine position 60 minutes following the int ravenous injection of 15.5 mCi of Tc-99m Sestamibi. Time of rest injection: 1530 Date: 10/17/2024 Time of rest imagin Date: 10/17/2024 Administration Route: IV Administration Site: Right AC Pharmacologic Stress Pharmacologic stress test was performed by injecting Regadenoson 0.4 mg IV push followed by the intra venous injection of 37 mCi of Tc-99m Sestamibi. Time of stress injection: 838 Date: 10/18/2024 Time of stress imagin Date: 10/18/2024 Administration Route: IV Administration Site: Right AC Gated Stress SPECT was performed 60 minutes after stress injection. The images were gated to evaluate regional wall motion and calculate left ventricular ejection fracti on. Stress only was performed in the Supine position. Nuclear Conclusion Nuclear Findings: negative for ischemia normal perfusin scan lvef 47% mild dysfunciton, correlate to echo no ischemia
--- NOTE | 2024-10-18 12:19 | DVHPN2 ---
Progress Note Date Seen: Oct 18, 2024 Medical Necessity Reason Pt with a Central, PICC or Fol: No Objective vital signs Vital Sign Date Time Temp Pulse Resp B/P (MAP) Pulse Ox O2 Delivery O2 Flow Rate FiO2 10/18/24 09:46 97 Room Air* 0 21 10/18/24 09:26 69 146/75 10/18/24 09:15 98.1 18 98.1 Total Intake and Output 10/17/24 10/17/24 10/18/24 15:00 23:00 07:00 Intake Total 300 ml 700 ml 300 ml Output Total 1475 ml Balance 300 ml -775 ml 300 ml medications Current Medications Medications Dose Ordered Sig/Angely Route Start Time Stop Time Status Last Admin Dose Admin Atorvastatin Calcium 10 mg HS PO 10/14/24 22:00 10/17/24 21:34 10 MG Hydralazine HCl 10 mg Q6HP PRN IV 10/14/24 20:30 Metoprolol Tartrate 25 mg BID PO 10/14/24 22:00 10/18/24 09:26 25 MG Azithromycin 250 ml @ 125 mls/hr DAILY IV 10/15/24 10:00 10/18/24 09:25 125 MLS/HR Acetaminophen/ Hydrocodone Bitart 1 tab Q4HP PRN PO 10/14/24 20:30 10/17/24 21:05 1 TAB Ondansetron HCl 4 mg Q4HP PRN IV 10/14/24 20:30 Docusate Sodium 100 mg BIDPRN PRN PO 10/14/24 20:30 Acetaminophen 650 mg Q6HP PRN PO 10/14/24 20:30 Nitroglycerin 0.4 mg Q5MINP PRN SL 10/14/24 22:15 Morphine Sulfate 2 mg Q30M PRN IV 10/14/24 22:15 Ceftriaxone Sodium 50 ml @ 100 mls/hr DAILY@09 IV 10/16/24 09:00 10/18/24 09:25 100 MLS/HR Prednisone 40 mg DAILY PO 10/16/24 10:00 10/18/24 09:26 40 MG Levothyroxine Sodium 75 mcg QAM@0600 PO 10/16/24 06:00 10/18/24 06:10 75 MCG Guaifenesin/ Dextromethorphan 10 ml Q6HP PRN PO 10/16/24 21:15 10/17/24 04:51 10 ML laboratory and microbiology Laboratory Tests 10/15/24 06:22 Test 10/15/24 06:22 Range/Units Serum Glucose 108 H 74-106 mg/dL Problem List/Assessment/Plan Problem List/Assessment/Plan chest pain r/ o chf obesity htn normal perfusion scan no ischemia lvef on echo is 55% outpt fu cv cleared for dc home Plan discussed with: Patient Date of Service: Oct 18, 2024 Billing Provider: CLEMENTE ELIZABETH MD Common Visit Codes: NOT BILLABLE CLEMENTE ELIZABETH MD Oct 18, 2024 12:19
[2024-10-18] MEDS ORDERED: AZITTAB PO (13:27)
[2024-10-18] MEDS ORDERED: ATOR20TA PO (13:27)
[2024-10-18] MEDS ORDERED: METH4PAK PO (13:27)
[2024-10-18] MEDS ORDERED: METO-289 PO (13:27)
[2024-10-18] MEDS ORDERED: LEVO25TA6 PO (13:27)
--- NOTE | 2024-10-18 13:34 | DVHDS2 ---
Discharge Summary Date of Admission Oct 14, 2024 at 22:03 Date of Discharge: Oct 18, 2024 Labs/Diagnostic Data: Laboratory Results Test 10/17/24 18:52 10/16/24 16:40 10/15/24 06:22 10/14/24 17:48 Magnesium Level 1.8 mg/dL (1.6-2.6) B-Type Natriuretic Peptide 199.58 pg/mL (0-100) Triglycerides Level 67 mg/dL (< 150) Cholesterol Level 206 mg/dL (< 200) LDL Cholesterol 139 mg/dL (< 100) HDL Cholesterol 54 mg/dL (40-59) Influenza Type A Antigen Negative (Negative) Influenza Type B Antigen Negative (Negative) SARS-CoV-2 Antigen (Rapid) Negative (NEGATIVE) White Blood Count 8.3 10^3/uL (4.4-10.8) Red Blood Count 4.83 10^6/uL (4.0-5.20) Hemoglobin 14.0 g/dL (12.2-16.2) Hematocrit 42.5 % (36.0-46.0) Mean Corpuscular Volume 88.0 fL (80.0-100.0) Mean Corpuscular Hemoglobin 28.9 pg (28.0-32.0) Mean Corpuscular Hemoglobin Concent 32.9 g/dL (32.0-36.0) Red Cell Distribution Width 15.2 % (11.8-14.3) Platelet Count 265 10^3/uL (140-450) Mean Platelet Volume 7.9 fL (6.9-10.8) Neutrophils (%) (Auto) 67.8 % (37.0-80.0) Lymphocytes (%) (Auto) 21.7 % (10.0-50.0) Monocytes (%) (Auto) 8.9 % (0.0-12.0) Eosinophils (%) (Auto) 1.2 % (0.0-7.0) Basophils (%) (Auto) 0.4 % (0.0-2.0) Neutrophils # (Auto) 5.6 10 ^3/uL (1.6-8.6) Lymphocytes # (Auto) 1.8 10 ^3/uL (0.4-5.4) Monocytes # (Auto) 0.7 10 ^3/uL (0-1.3) Eosinophils # (Auto) 0.1 10 ^3/uL (0-0.8) Basophils # (Auto) 0 10 ^3/uL (0-0.2) Nucleated Red Blood Cells 0.1 % Sodium Level 137 mmol/L (136-145) Potassium Level 4.1 mmol/L (3.5-5.1) Chloride Level 105 mmol/L (98-107) Carbon Dioxide Level 23 mmol/L (20-31) Anion Gap 9 (5-15) Blood Urea Nitrogen 11 mg/dL (9-23) Creatinine 0.79 mg/dL (0.550-1.02) Glomerular Filtration Rate Calc 80 mL/min (>90) BUN/Creatinine Ratio 13.9 (10.0-20.0) Serum Glucose 108 mg/dL (74-106) Calcium Level 10.3 mg/dL (8.7-10.4) Total Bilirubin 0.6 mg/dL (0.2-1.0) Aspartate Amino Transferase (AST) 14 U/L (13-40) Alanine Aminotransferase (ALT) 10 U/L (7-40) Alkaline Phosphatase 83 U/L (46-116) Total Protein 7.9 g/dL (5.7-8.2) Albumin 4.8 g/dL (3.2-4.8) Thyroid Stimulating Hormone (TSH) 22.44 uIU/mL (0.55-4.78) Hepatitis B Surface Antigen Negative (Negative) Hepatitis C Antibody Negative (Negative) Troponin I High Sensitivity 4 ng/L (</=34) Other Laboratory Tests 10/15/24 06:22 Brief Hx & Hospital Course: Final diagnoses: Acute chest pain, musculoskeletal Bilateral pneumonia Asthma COPD exacerbation Hypertension History of CVA History of asthma History of ND Hypothyroidism 69-year-old female who was admitted for cough and shortness of breaths was diagnosed with pneumonia She had pain in the chest which was ruled out as a musculoskeletal pain She had a stress test which was negative She was given IV antibiotics and oxygen and med neb treatments and steroids and she improved significantly Her cough is better now She is mostly asymptomatic except for some pain with taking a deep breaths The patient is stable for discharge on Zithromax and a tapered dose prednisone and resume home medications as before Her TSH was high She said she is not taking her thyroid like she should She will be given a refill for all her medications including levothyroxine 75 mcg daily Follow up with the primary care physician as soon as possible Condition at Discharge: Stable Final Diagnosis/Problems List Acute chest pain, musculoskeletal Bilateral pneumonia Asthma COPD exacerbation Hypertension History of CVA History of asthma History of ND Hypothyroidism Discharge Disposition: Home SNF Discharge Will this Physician continue t: No Discharge Instruct/Medications Diet: Cardiac 2g Na,low cholest Activity: No Restrictions, As Tolerated Follow Up/Referral: PCP as soon as possible Medications: Medrol Dosepak Z-Taye Resume the home meds Discharge Statement: "Patient was advised to return to the ER or call 911 if any headaches, dizziness, shortness of breath, chest pain, abdominal pain, bleeding, fevers, or worsening of medical condition. Patient was counseled about treatment plan, medications, possible side effects, patientverbalized understanding. All questions were answered to the best of my ability. This discharge took greater then 30 minutes in planning, reviewing documentation, counseling the patient, and discussing with other team members." ASSESSMENT ASSESSMENT Assessment Acute chest pain, musculoskeletal Bilateral pneumonia Asthma COPD exacerbation Hypertension History of CVA History of asthma History of ND Hypothyroidism Date of Service: Oct 18, 2024 Billing Provider: BROOKLYNN TAYLOR MD Common Visit Codes: NOT BILLABLE BROOKLYNN TAYLOR MD Oct 18, 2024 13:34
--- NOTE | 2024-10-19 08:37 | ECG ---
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
== END 2024-10-18 14:35 | disposition home or self-care (01) | DRG 190 ==
LOC: ER 16:29 → OVERFLOW 22:03 → TELE-WESTW 23:34
PROVIDERS: ADMIT Internal Medicine Geriatric Medicine; ATTEND Internal Medicine Geriatric Medicine
DX: J44.1 Chronic obstructive pulmonary disease with (acute) exacerbation (principal); J15.69 Pneumonia due to other Gram-negative bacteria; J15.9 Unspecified bacterial pneumonia; J44.0 Chronic obstructive pulmonary disease with (acute) lower respiratory infection; I10 Essential (primary) hypertension; F17.210 Nicotine dependence, cigarettes, uncomplicated; E78.5 Hyperlipidemia, unspecified; E03.9 Hypothyroidism, unspecified; E66.9 Obesity, unspecified; Z88.6 Allergy status to analgesic agent; Z86.73 Personal history of transient ischemic attack (TIA), and cerebral infarction without residual deficits; I25.2 Old myocardial infarction; Z82.49 Family history of ischemic heart disease and other diseases of the circulatory system; Z95.1 Presence of aortocoronary bypass graft; Z68.24 Body mass index [BMI] 24.0-24.9, adult; Z79.899 Other long term (current) drug therapy
CPT/HCPCS: 36415; 71045; 78452; 80048; 80053; 80061; 83735; 83880; 84443; 84484; 85025; 86803; 87340; 87426; 87804; 93005; 93017; 93306; 94640; 96365; 97110; 97116; 97163; 97530; 99291; G0378